=== PATIENT | male | born 1975 ===

== ENCOUNTER → 2019-07-13 | Outpatient (CLI) | payer OTHER ==
[~2019-07-13] MED LIST: ACEASPCAF
== END ==
LOC: LAB 12:15 → LAB SHORT 12:15
DX: N39.0 Urinary tract infection, site not specified (principal)
CPT/HCPCS: 87086; 87147

== ENCOUNTER 2020-06-16 19:05 | Emergency (ER) | payer OTHER ==
[~2020-06-16] VITALS: Ht 177.8 cm; Wt 86.2 kg
[2020-06-16] MEDS ORDERED: Naprosyn500 MG PO (20:26)
== END 2020-06-16 20:32 | disposition home or self-care (01) ==
LOC: ER 19:05
DX: S46.812A Strain of other muscles, fascia and tendons at shoulder and upper arm level, left arm, initial encounter (principal); S39.012A Strain of muscle, fascia and tendon of lower back, initial encounter; S29.012A Strain of muscle and tendon of back wall of thorax, initial encounter; X58.XXXA Exposure to other specified factors, initial encounter
CPT/HCPCS: 72100; 99283-25; A9270

== ENCOUNTER 2020-08-12 20:12 | Emergency (ER) | payer OTHER ==
[~2020-08-12] VITALS: Ht 177.8 cm; Wt 88.5 kg
[~2020-08-12 20:12] MED LIST changes: +Naprosyn500 MG PO
[2020-08-12] MEDS ORDERED: PRED20 PO (22:33)
[2020-08-12] MEDS ORDERED: Artificial Tear15 ML LEFTEYE (22:33)
== END 2020-08-12 22:52 | disposition home or self-care (01) ==
LOC: ER 20:12
DX: G51.0 Bell's palsy (principal)
CPT/HCPCS: 99283; A9270; J7512